=== PATIENT | male | born 1990 | race Caucasian/White ===

== ENCOUNTER 2016-12-24 09:16 | Emergency (ER) | payer BC, OTHER ==
[2016-12-24 09:34] VITALS: BMI 20.3
[2016-12-24 09:35] VITALS: RESP 18
[2016-12-24] MEDS ORDERED: Sodium Chloride 0.9% 1,000 ML IV ONE (09:53)
[2016-12-24 10:43] LABS: BASO # 0.1 K/uL (0.0-0.2); BASO % 0.4 % (0.0-2.0); EOS # 0.3 K/uL (0.0-0.7); EOS % 2.2 % (0.0-4.0); LYMPH # 0.8 K/uL (1.0-4.3); LYMPH % 6.4 % (20.0-40.0); MEAN CELL VOLUME 91.9 fL (80.0-94.0); MEAN CORPUSCULAR HEMOGLOBIN 30.4 pg (27.0-31.0); MEAN CORPUSCULAR HGB CONC 33.1 g/dL (33.0-37.0); MEAN PLATELET VOLUME 7.9 fL (7.2-11.7); MONO # 0.5 K/uL (0.0-0.8); MONO % 4.2 % (0.0-10.0); PLATELET COUNT 191 K/uL (130-400); RED CELL DISTRIBUTION WIDTH 13.1 % (11.5-14.5); WHITE BLOOD COUNT 11.8 K/uL (4.8-10.8)
[2016-12-24] MEDS ORDERED: Sodium Chloride 0.9% 1,000 ML ONE (10:44)
[2016-12-24 10:47] LABS: URINE BILIRUBIN NEGATIVE (NEGATIVE); URINE BLOOD 2+ (NEGATIVE); URINE COLOR Yellow (YELLOW); URINE GLUCOSE (UA) NORMAL (Normal); URINE KETONE NEGATIVE (NEGATIVE); URINE LEUKOCYTE ESTERASE NEG Leu/uL (Negative); URINE PROTEIN NEGATIVE (NEGATIVE); URINE UROBILINOGEN NORMAL mg/dL (0.2-1.0); WBC URINE < 1 /hpf (0-5)
[2016-12-24 10:49] LABS: URINE BACTERIA RARE (<OCC)
[2016-12-24 10:54] LABS: CHLORIDE 101 mmol/L (98-107); INR 1.1
[2016-12-24 10:55] LABS: POTASSIUM 3.7 mmol/L (3.6-5.2); SODIUM 136 mmol/L (132-148)
[2016-12-24 10:58] LABS: ALB/GLOB RATIO 1.9 (1.0-2.1); ALKALINE PHOSPHATASE 60 U/L (38-126); ALT/SGPT 27 U/L (21-72); AST/SGOT 28 U/L (17-59); BILIRUBIN,TOTAL 0.7 mg/dL (0.2-1.3); BLOOD UREA NITROGEN 7 mg/dL (9-20); CALCIUM 8.8 mg/dl (8.6-10.4); CARBON DIOXIDE 25 mmol/L (22-30); GFR AFRICAN-AMERICAN > 60; GLUCOSE,RANDOM 79 mg/dL (75-110); TOTAL PROTEIN 6.5 g/dL (6.3-8.3)
--- NOTE | 2016-12-24 10:58 | C.PDOC ---
History Of Present Illness 26 y/o male presents to ED with complaints of abdominal pain and diarrhea for two days. Patient denies blood in stool , N/V/D, fever or other complaints at this time. Patient PSHx Colostomy at 2 years old. Time Seen by Provider: 12/24/16 09:39 Chief Complaint (Nursing): GI Problem History Per: Patient History/Exam Limitations: no limitations Onset/Duration Of Symptoms: Days Past Medical History Reviewed: Historical Data, Nursing Documentation, Vital Signs Vital Signs: Last Vital Signs Temp 98.4 F 12/24/16 11:54 Pulse 61 12/24/16 11:54 Resp 18 12/24/16 11:54 BP 110/69 12/24/16 11:54 Pulse Ox 98 12/24/16 11:54 Family History: States: Unknown Family Hx - Social History Hx Tobacco Use: Yes Hx Alcohol Use: Yes Hx Substance Use: Yes - Immunization History Hx Tetanus Toxoid Vaccination: No Hx Influenza Vaccination: No Hx Pneumococcal Vaccination: No Review Of Systems Except As Marked, All Systems Reviewed And Found Negative. Constitutional: Negative for: Fever, Chills Gastrointestinal: Positive for: Abdominal Pain, Diarrhea. Negative for: Nausea , Vomiting Neurological: Negative for: Headache Physical Exam - Physical Exam Appears: Non-toxic, No Acute Distress Skin: Normal Color Head: Atraumatic, Normacephalic Oral Mucosa: Moist Cardiovascular: Rhythm Regular Respiratory: Normal Breath Sounds, No Rales, No Rhonchi, No Wheezing Gastrointestinal/Abdominal: Tenderness (Epigastric Tenderness), No Guarding, No Rebound Extremity: Normal ROM Neurological/Psych: Oriented x3, Normal Speech, Normal Cognition Gait: Steady ED Course And Treatment - Laboratory Results Result Diagrams: 12/24/16 10:38 12/24/16 10:38 O2 Sat by Pulse Oximetry: 99 Medical Decision Making Medical Decision Making: abd pain r/o colitis, gastritis, pancreatitis. labs imaging pending 1213: pt reasseessed. pain improved. mild leukocytosis. ct neg for acute infection. pt states feels well for d/c. notified of incidental findings. advised to discuss outpt. return precautions advised. Disposition - Disposition Referrals: Shiv Marquez MD [Staff Provider] - Disposition: HOME/ ROUTINE Disposition Time: 12:14 Condition: STABLE Additional Instructions: please follow up with specialist. and clinic. please discuss your ct findings with the specialist. return to er with worsening symptoms or concerns. Prescriptions: Famotidine [Pepcid] 20 mg PO DAILY #20 tab Instructions: Acute Abdominal Pain (ED) Print Language: INDIAN - Clinical Impression Clinical Impression: Abdominal pain - PA / PROCEDURES ANALYST / Resident Statement MD/DO has reviewed & agrees with the documentation as recorded. MD/DO has examined the patient and agrees with the treatment plan. - Scribe Statement The provider has reviewed the documentation as recorded by the Olivia Vanessa All medical record entries made by the Olivia were at my direction and personally dictated by me. I have reviewed the chart and agree that the record accurately reflects my personal performance of the history, physical exam, medical decision making, and the department course for this patient. I have also personally directed, reviewed, and agree with the discharge instructions and disposition.
[2016-12-24 11:05] LABS: RBC URINE 9 /hpf (0-3)
[2016-12-24 11:18] LABS: EOSINOPHIL 1 % (0-4); NEUTROPHIL 86 % (50-75); REACTIVE LYMPHOCYTES 2 % (0-0); TOTAL CELLS COUNTED 100
[2016-12-24] MEDS ORDERED: Iodixanol 320 MG/ML 100 ML BOTTLE IV ONE (11:37)
[2016-12-24 11:56] VITALS: BP 110/69; PULSE 61; TEMP 98.4
--- NOTE | 2016-12-24 12:12 | CT ---
PROCEDURE: CT A abdomen en and pelvis dated 12/24/2016. HISTORY: Abdominal pain and diarrhea. COMPARISON: None. TECHNIQUE: Contiguous helical/transaxial images of the abdomen and pelvis. Oral contrast was administered. No IV contrast given. Coronal and Sagittal reformats generated. Radiation dose: Total exam DLP = mGy-cm. This CT exam was performed using one or more of the following dose reduction techniques: Automated exposure control, adjustment of the mA and/or kV according to patient size, and/or use of iterative reconstruction technique. Total exam DLP = 248.79 mGy-cm. FINDINGS: LOWER THORAX: Lung bases clear. No infiltrate effusion or basilar pneumothorax. Small hiatal hernia. Heart size is borderline enlarged. No pericardial effusion. LIVER: The liver is borderline enlarged measuring nearly 18 cm in CC dimension. There is a small approximately 6.4 mm rounded material. The stomach is incompletely distended which may account for slight thick-walled appearance. Visualized loops of small bowel exhibit normal contour and caliber. No evidence acute mechanical small bowel obstruction. Stool and air seen throughout colon. No definitive mural wall thickening. Hypodense lesion within the lateral aspect right lobe liver best seen on axial series 2 image number 28. This too small to characterize though may represent small hemangioma or cyst. There heart 2 additional smaller low-attenuation lesions within the superior and inferior margins of the right lobe liver measuring approximately 4.1 and 4.4 mm respectively too small characterize though similar differential ; (see axial image number 16 and 32). . Lobe and inferior aspect inferior aspect right lobe liver seen on axial image number 32 with similar differential. Followup interval could performed to assess stability. There appears be some very minimal fatty hepatic infiltration. Portal and splenic veins are opacified. No evidence of significant ascites GALLBLADDER AND BILE DUCTS: Gallbladder is physiologically distended. No evidence of intraluminal gallbladder calculi. PANCREAS: Pancreas appears grossly unremarkable. SPLEEN: Spleen exhibits normal size and attenuation pattern without mass collection or calcification. ADRENALS: No adrenal lesions. KIDNEYS AND URETERS: Kidneys exhibit symmetric nephrograms. No evidence of nephrolithiasis or hydronephrosis. BLADDER: The urinary bladder is physiologically distended however there is very minimal wall thickening ; muscular hypertrophy may contribute. Possibility of a cystitis male patient is less likely though not completely excluded. REPRODUCTIVE: Few small calcifications seen within the prostate gland APPENDIX: The appendix is not seen with certainty. BOWEL: Evaluation of the bowel is somewhat limited due to the lack of oral contrast. The stomach is underdistended which may account thick-walled appearance. Visualized loops small bowel exhibit normal contour and caliber. No evidence acute mechanical small bowel obstruction. The sigmoid colon that extends to the level of the rectum on the left side with slight wall thickening. This could be secondary to prior surgery for history of imperforate anus as per emergency room physician. The bowel is also partially collapsed which may contribute. No definitive evidence of mural wall thickening elsewhere. Moderate amount of stool is seen within the cecum and at ascending colon and to a lesser degree remaining colon suggesting mild constipation. PERITONEUM: Unremarkable. No fluid collection. No free air. LYMPH NODES: No significant/bulky adenopathy. VASCULATURE: Unremarkable. No aortic aneurysm. BONES: No the osseous structures intact. OTHER FINDINGS: None. IMPRESSION: There are a few small low-attenuation foci scattered throughout hepatic parenchyma which are of uncertain etiology though could represent a small hemangiomas or cysts. Followup at interval could be performed to assess stability. Minimal fatty hepatic infiltration. Minimal bladder wall thickening may in part be due to muscular hypertrophy however the possibility of a cystitis less likely in a male patient though not completely exclude No evidence mechanical bowel obstruction. Findings suggest mild constipation. Questionable postoperative changes involving the distal sigmoid and anus at as detailed above.
[2016-12-24 12:15] VITALS: O2SAT 99
== END 2016-12-24 12:30 | disposition home or self-care (01) ==
LOC: C.ER 09:16
DX: R10.13 Epigastric pain (principal)
CPT/HCPCS: 74177; 80053; 81001; 83690; 85025; 85610; 85730; 96361; 96374; 96375; 99285; C9113; J2405; J7040; Q9967

== ENCOUNTER 2017-01-22 17:37 | Emergency (ER) | payer OTHER ==
[2017-01-22 17:37] VITALS: BMI 20.3
[2017-01-22] MEDS ORDERED: Sodium Chloride 0.9% 1,000 ML IV ONE ×3 (19:04→21:38)
[2017-01-22] MEDS ORDERED: Iohexol 240 (50 ml) PO ONE (19:06)
--- NOTE | 2017-01-22 19:11 | C.PDOC ---
History Of Present Illness A 26 y/o male c/o abdominal pain that began yesterday with associated diarrhea. Pt notes the pain as severe at the mid abdominal area. Pt denies fever, chills, nausea, vomiting, dysuria, or hematuria. Time Seen by Provider: 01/22/17 19:07 Chief Complaint (Nursing): Abdominal Pain History Per: Patient History/Exam Limitations: no limitations Onset/Duration Of Symptoms: Days Current Symptoms Are (Timing): Still Present Severity: Severe Location Of Pain/Discomfort: Other (Mid abdomen) Associated Symptoms: Diarrhea. denies: Fever, Chills, Nausea, Vomiting Recent travel outside of the [place]: No Additional History Per: Patient Past Medical History Reviewed: Historical Data, Nursing Documentation, Vital Signs Vital Signs: Last Vital Signs Temp 98.2 F 01/22/17 20:44 Pulse 63 01/22/17 20:44 Resp 13 01/22/17 20:44 BP 101/62 01/22/17 20:44 Pulse Ox 99 01/22/17 22:00 Family History: States: Unknown Family Hx - Social History Hx Tobacco Use: Yes Hx Alcohol Use: Yes Hx Substance Use: No - Immunization History Hx Tetanus Toxoid Vaccination: No Hx Influenza Vaccination: No Hx Pneumococcal Vaccination: No Review Of Systems Except As Marked, All Systems Reviewed And Found Negative. Constitutional: Negative for: Fever, Chills Gastrointestinal: Positive for: Abdominal Pain (Mid abdomen), Diarrhea. Negative for: Nausea, Vomiting Genitourinary: Negative for: Dysuria, Hematuria Physical Exam - Physical Exam Appears: Non-toxic, In Acute Distress (Mild distress due to pain) Skin: Warm, Dry Head: Atraumatic, Normacephalic Eye(s): bilateral: Normal Inspection Chest: Symmetrical Cardiovascular: Rhythm Regular, No Murmur Respiratory: Normal Breath Sounds, No Rales, No Rhonchi, No Wheezing Gastrointestinal/Abdominal: Soft, Tenderness (LUQ and mid abdomen area), No Guarding, No Hernia, Other (Operative scar LLQ due to imperforate anus) Neurological/Psych: Oriented x3, Normal Speech, Normal Cognition, Other (No focal deficit) ED Course And Treatment - Laboratory Results Result Diagrams: 01/22/17 19:16 01/22/17 19:16 O2 Sat by Pulse Oximetry: 99 (RA) Pulse Ox Interpretation: Normal - CT Scan/US Abdomen/Pelvis CT Other Rad Studies (CT/US): Read By Radiologist (Pam Hernandez MD), Radiology Report Reviewed CT/US Interpretation: EXAM: CT Abdomen and Pelvis With Intravenous Contrast. CLINICAL HISTORY: 26 years old, male; Pain; Abdominal pain; Generalized; Additional info: Severe abd pain, n/v; remote. imperforate anus repair. TECHNIQUE: Axial computed tomography images of the abdomen and pelvis with intravenous contrast. This CT. exam was performed using one or more of the following dose reduction techniques: automated. exposure control, adjustment of the mA and/or kV according to patient size, and/or use of iterative. reconstruction technique. Coronal and sagittal reformatted images were created and reviewed. CONTRAST: 100 mL of visipaque 320 administered intravenously. EXAM DATE/TIME: 01/22/2017 7:05 PM. COMPARISON: Prior images are not available for review. FINDINGS: Lower thorax: Heart size is normal. There is minimal dependent atelectasis at the lung bases There. is a small hiatal hernia. ABDOMEN: Liver: here are small low attenuation lesions in the liver difficult to further characterize. There is mild. fatty infiltration liver. Gallbladder and bile ducts: unremarkable. Pancreas: unremarkable. Spleen: unremarkable. Adrenals: unremarkable. Kidneys and ureters: unremarkable. Stomach and bowel: Stomach is partially distended. Rotation is normal. There is no small bowel. obstruction. There is contrast level of the distal ileum. Terminal ileum is unremarkable. Visualized. portion of the appendix is unremarkable. Colon is incompletely distended which limits evaluation. There are postsurgical changes involving distal sigmoid and rectum. Appendix: See stomach and bowel. PELVIS: Bladder: Bladder is partially distended. There is mild bladder wall thickening. Bladder is displaced. to the right by bowel loops. Reproductive: Seminal vesicles and prostate are not well demonstrated. ABDOMEN and PELVIS: Intraperitoneal space: There is no free air or free fluid. Bones/joints: There are no acute osseous abnormalities. Soft tissues: unremarkable. Vasculature: Vascular structures are unremarkable. Lymph nodes: There is no pathologic adenopathy. IMPRESSION: No acute solid visceral abnormality, no bowel obstruction; no CT findings of. appendicitis; altered anatomy of the distal sigmoid and rectum consistent with history of imperforate. anus Medical Decision Making Medical Decision Making: Impression: 26 y/o male c/o abdominal pain that began yesterday with associated diarrhea. Plans: -CT Abd/Pel -Blood labs -Bentyl -Omnipaque -Toradol -Zofran -IV Fluids -Reassess Disposition Counseled Patient/Family Regarding: Diagnosis - Disposition Referrals: [facility] [Outside] Disposition: HOME/ ROUTINE Disposition Time: 21:57 Condition: STABLE Prescriptions: Dicyclomine [Bentyl] 10 mg PO QID #14 cap Instructions: Gastroenteritis (ED), Acute Diarrhea (ED), Acute Hematuria (GEN) Forms: Gen Discharge Inst Urdu Print Language: EAST TIMORESE - POA Present On Arrival: None - Clinical Impression Clinical Impression: Abdominal pain, Gastroenteritis, Diarrhea, Hematuria - Scribe Statement The provider has reviewed the documentation as recorded by the Scribe Leelee black All medical record entries made by the Scribe were at my direction and personally dictated by me. I have reviewed the chart and agree that the record accurately reflects my personal performance of the history, physical exam, medical decision making, and the department course for this patient. I have also personally directed, reviewed, and agree with the discharge instructions and disposition.
[2017-01-22] MEDS ORDERED: Sodium Chloride 0.9% 1,000 ML ONE (19:15)
[2017-01-22 19:19] LABS: EOS % 0.1 % (0.0-4.0); HEMATOCRIT 47.5 % (35.0-51.0); LYMPH # 0.5 K/uL (1.0-4.3); LYMPH % 4.3 % (20.0-40.0); MEAN CELL VOLUME 89.8 fL (80.0-94.0); MEAN CORPUSCULAR HEMOGLOBIN 30.1 pg (27.0-31.0); MEAN CORPUSCULAR HGB CONC 33.5 g/dL (33.0-37.0); MEAN PLATELET VOLUME 8.7 fL (7.2-11.7); MONO # 0.6 K/uL (0.0-0.8); MONO % 4.4 % (0.0-10.0); PLATELET COUNT 193 K/uL (130-400); WHITE BLOOD COUNT 12.9 K/uL (4.8-10.8)
[2017-01-22] MEDS ORDERED: Iohexol 300 100 ML IJ ONE (19:22)
[2017-01-22 19:28] LABS: CHLORIDE 104 mmol/L (98-107); POTASSIUM 3.3 mmol/L (3.6-5.2); SODIUM 139 mmol/L (132-148)
[2017-01-22 19:30] LABS: BILIRUBIN,TOTAL 0.8 mg/dL (0.2-1.3); CARBON DIOXIDE 21 mmol/L (22-30); GFR AFRICAN-AMERICAN > 60
[2017-01-22 19:31] LABS: ALB/GLOB RATIO 1.6 (1.0-2.1); ALKALINE PHOSPHATASE 66 U/L (38-126); ALT/SGPT 26 U/L (21-72); AST/SGOT 30 U/L (17-59); BLOOD UREA NITROGEN 12 mg/dL (9-20); CALCIUM 9.4 mg/dl (8.6-10.4); GLUCOSE,RANDOM 85 mg/dL (75-110)
[2017-01-22 19:36] LABS: RBC URINE 162 /hpf (0-3); URINE BILIRUBIN NEGATIVE (NEGATIVE); URINE BLOOD 3+ (NEGATIVE); URINE COLOR Yellow (YELLOW); URINE GLUCOSE (UA) NORMAL (Normal); URINE KETONE 2+ mg/dL (NEGATIVE); URINE LEUKOCYTE ESTERASE NEG Leu/uL (Negative); URINE PROTEIN NEGATIVE (NEGATIVE); WBC URINE 1 /hpf (0-5)
[2017-01-22] MEDS ORDERED: Iohexol 240 (50 ml) ONE (19:44)
[2017-01-22 19:57] LABS: NEUTROPHIL 92 % (50-75); TOTAL CELLS COUNTED 100
--- NOTE | 2017-01-22 21:31 | CT ---
EXAM: CT Abdomen and Pelvis With Intravenous Contrast CLINICAL HISTORY: 26 years old, male; Pain; Abdominal pain; Generalized; Additional info: Severe abd pain, n/v; remote imperforate anus repair TECHNIQUE: Axial computed tomography images of the abdomen and pelvis with intravenous contrast. This CT exam was performed using one or more of the following dose reduction techniques: automated exposure control, adjustment of the mA and/or kV according to patient size, and/or use of iterative reconstruction technique. Coronal and sagittal reformatted images were created and reviewed. CONTRAST: 100 mL of visipaque 320 administered intravenously. EXAM DATE/TIME: 01/22/2017 7:05 PM COMPARISON: Prior images are not available for review. FINDINGS: Lower thorax: Heart size is normal. There is minimal dependent atelectasis at the lung bases There is a small hiatal hernia. ABDOMEN: Liver: here are small low attenuation lesions in the liver difficult to further characterize. There is mild fatty infiltration liver. Gallbladder and bile ducts: unremarkable Pancreas: unremarkable Spleen: unremarkable Adrenals: unremarkable Kidneys and ureters: unremarkable Stomach and bowel: Stomach is partially distended. Rotation is normal. There is no small bowel obstruction. There is contrast level of the distal ileum. Terminal ileum is unremarkable. Visualized portion of the appendix is unremarkable. Colon is incompletely distended which limits evaluation. There are postsurgical changes involving distal sigmoid and rectum. Appendix: See stomach and bowel PELVIS: Bladder: Bladder is partially distended. There is mild bladder wall thickening. Bladder is displaced to the right by bowel loops. Reproductive: Seminal vesicles and prostate are not well demonstrated ABDOMEN and PELVIS: Intraperitoneal space: There is no free air or free fluid. Bones/joints: There are no acute osseous abnormalities Soft tissues: unremarkable Vasculature: Vascular structures are unremarkable. Lymph nodes: There is no pathologic adenopathy. IMPRESSION: No acute solid visceral abnormality, no bowel obstruction; no CT findings of appendicitis; altered anatomy of the distal sigmoid and rectum consistent with history of imperforate anus
[2017-01-22 22:03] VITALS: RESP 18
[2017-01-22 23:35] VITALS: BP 112/73; PULSE 60; TEMP 97.9; O2SAT 98
== END 2017-01-22 23:20 | disposition home or self-care (01) ==
LOC: C.ER 17:37
DX: K52.9 Noninfective gastroenteritis and colitis, unspecified (principal); R31.9 Hematuria, unspecified
CPT/HCPCS: 74177; 80053; 81001; 82948; 83690; 85025; 87086; 96361; 96372; 96374; 96375; 99285; J0500; J1885; J2405; J3480; J7040; Q9966; Q9967